=== PATIENT | female | born 1970 | race Caucasian/White ===

== ENCOUNTER 2021-08-24 11:30 | Outpatient (CLI) | payer OTHER ==
[2021-08-24 12:47] LABS: Hemoglobin 12.2 g/dL (12.0-15.5); Mean Corpuscular HGB CONC 31.1 g/dL (32.0-36.0); Mean Corpuscular Hemoglobin 25.5 pg (27.0-33.0); Mean Corpuscular Volume 81.8 fl (81.6-98.3); Platelet Count 285 10x3/uL (150-450); Red Blood Cell (RBC) Count 4.79 10x6/uL (3.90-5.03); White Blood Cell (WBC) Count 7.7 10x3/uL (3.5-10.5)
[2021-08-24 12:58] LABS: Anion Gap 14 mmol/L (10-20); BUN (Urea Nitrogen) 9 mg/dL (9.8-20.1); Calc. Creatinine Clearance 0 mL/min (70-130); Calcium 9.2 mg/dL (7.8-10.44); Carbon Dioxide 26 mmol/L (22-29); Chloride 102 mmol/L (98-107); Glucose 225 mg/dL (70-105); Potassium 4.1 mmol/L (3.5-5.1); Sodium 138 mmol/L (136-145)
[2021-08-24 22:27] LABS: SARS-CoV-2 PCR by NAA Not Detected (NotDetected)
== END 2021-08-24 11:31 | disposition home or self-care (01) ==
LOC: CSHLAB 11:30
PROVIDERS: ATTEND Surgery
DX: Z01.818 Encounter for other preprocedural examination (principal); Z20.822 Contact with and (suspected) exposure to COVID-19; K82.8 Other specified diseases of gallbladder
CPT/HCPCS: 80048; 85027; 93005; 93010; U0003; U0005

== ENCOUNTER 2021-08-27 09:02 | Day surgery (SDC) | payer OTHER ==
[2021-08-24 12:30] VITALS: BMI 62.7
[2021-08-27] MEDS ORDERED: EPINEPHrine 1 MG/ML AMP ONE (09:47)
[2021-08-27] MEDS ORDERED: Bupivacaine PF 0.5% 30 ML VIAL ONE (09:47)
[2021-08-27] MEDS ORDERED: Lidocaine 1% MPF 2 ML VIAL ONE (10:13)
[2021-08-27] MEDS ORDERED: Fentanyl 250 MCG/5 ML VIAL ONE (11:03)
[2021-08-27] MEDS ORDERED: Lidocaine 1% PF 5 ML VIAL ONE (11:03)
[2021-08-27] MEDS ORDERED: Ondansetron PF 4 MG/2 ML Vial ONE (11:03)
[2021-08-27] MEDS ORDERED: PROPOFOL 20 ML ONE (11:03)
[2021-08-27] MEDS ORDERED: Dexamethasone 4 mg/ml Vial ONE (11:03)
[2021-08-27] MEDS ORDERED: Rocuronium Bromide 10 MG/ML (10ML VIAL) ONE (11:04)
[2021-08-27] MEDS ORDERED: Glycopyrrolate 0.2 MG/ML 5 ML SYRINGE ONE (12:26)
[2021-08-27] MEDS ORDERED: SUGAMMADEX SODIUM 200 MG/2 ML VIAL ONE (12:32)
[2021-08-27] MEDS ORDERED: Fentanyl 100 MCG/2 ML VIAL ONE (12:52)
[2021-08-27] MEDS ORDERED: HYDROcodone/Acetaminophen 5/325 mg Tablet PO PRN (13:44)
[2021-08-27] MEDS ORDERED: HYDROcodone/Acetaminophen 5/325 mg Tablet ONE (14:18)
== END 2021-08-27 14:50 | disposition home or self-care (01) ==
LOC: CSHSDC 09:02
PROVIDERS: ATTEND Surgery
PROC: 0FT44ZZ Resection of Gallbladder, Percutaneous Endoscopic Approach (ICD-10-PCS; principal; 2021-08-27)
DX: K81.1 Chronic cholecystitis (principal); K82.8 Other specified diseases of gallbladder; E66.01 Morbid (severe) obesity due to excess calories; Z68.44 Body mass index [BMI] 60.0-69.9, adult; I27.82 Chronic pulmonary embolism; E11.52 Type 2 diabetes mellitus with diabetic peripheral angiopathy with gangrene; Z79.899 Other long term (current) drug therapy; Z79.84 Long term (current) use of oral hypoglycemic drugs
CPT/HCPCS: 36416; 88304; C1776; J0171; J1100; J2405; J2704; J3010; J3490; S0020